=== PATIENT | male | born 1955 | race Caucasian/White ===

== ENCOUNTER → 2016-09-19 | Outpatient (CLI) | payer MEDICARE | LOC: LABPAT 06:33 | PROVIDERS: ATTEND Surgery | DX: Z01.810 Encounter for preprocedural cardiovascular examination (principal); I10 Essential (primary) hypertension | CPT/HCPCS: 93005 ==

== ENCOUNTER 2016-09-24 12:11 | Day surgery (SDC) | payer MEDICARE ==
--- NOTE | 2016-08-31 16:27 | P.GSHP ---
History of Present Illness H&P Date: 08/31/16 Chief Complaint: Hernia Patient seen in the office today with complaints of left groin swelling and swelling at the umbilicus. He has discomfort at the umbilicus at times. The swelling in the left groin has gradually increased. He was told in the past this may represent a lipoma. No nausea or vomiting. No change in bowel habits. Surgical - Exam Physical exam: General: Well-developed, well-nourished HEENT: Normocephalic, sclerae nonicteric Abdomen: Nontender, nondistended, incarcerated umbilical hernia moderate sized, skin appears slightly ischemic in nature, left groin with large lipoma, no definite hernia palpable Extremities: No edema Neuro: Alert and oriented Assessment and Plan (1) Incarcerated umbilical hernia Narrative/Plan: Will proceed with operative repair of the umbilical hernia that is incarcerated with mesh. We'll plan excision of the left groin lipoma simultaneously. If a left inguinal hernia is identified was repaired as well. Risks of bleeding, infection, recurrence, postoperative pain, swelling, seroma formation, and bowel injury were discussed. He understands and wishes to proceed. Status: Acute
[2016-09-17 09:57] VITALS: BMI 47.4
[~2016-09-24 12:11] MED LIST: DEXAMETHASONE SOD PHOSPHATE 10 MG/ML 1 ML VIAL IV ONE; HEPARIN SODIUM,PORCINE 5,000 UNIT/ML 1 ML VIAL SQ ONE; LACTATED RINGERS 1,000 ML IV SCH; LIDOCAINE 1% 20 ML VIAL (10MG/ML) FOR IV START INTRADERMA PRN; SCOPOLAMINE 1.5MG/72HR PATCH TRANSDERM ONE; ceFAZolin 3 GM in SODIUM CHLORIDE 0.9% 100 ML IVPB ONE
[2016-09-24] MEDS ORDERED: LACTATED RINGERS 1,000 ML IV ONE ×2 (12:41→15:06)
[2016-09-24] MEDS: ONDANSETRON 4 MG/2 ML VIAL IVP ONE ×2 (12:53→16:24)
[2016-09-24] MEDS ORDERED: BUPIVACAINE (PF) 0.25% 30 ML VIAL SQ ONE ×2 (14:08)
[2016-09-24] MEDS ORDERED: SUCCINYLCHOLINE CHLORIDE VIAL 200 MG/10 ML VIAL IV ONE (14:24)
[2016-09-24] MEDS ORDERED: LIDOCAINE 1% INJ 10MG/ML (20 ML MDV) ONE (14:24)
[2016-09-24] MEDS ORDERED: MIDAZOLAM 2 MG/2 ML VIAL ONE (14:24)
[2016-09-24] MEDS ORDERED: GLYCOPYRROLATE 0.2 MG/ML 2 ML VIAL ONE (14:24)
[2016-09-24] MEDS ORDERED: PROPOFOL 10 MG/ML 20 ML VIAL IV ONE (14:24)
[2016-09-24] MEDS ORDERED: ROCURONIUM BROMIDE 10 MG/ML 10 ML VIAL IV ONE (14:24)
[2016-09-24] MEDS ORDERED: KETOROLAC 30 MG/ML 1 ML VIAL ONE (14:24)
[2016-09-24] MEDS ORDERED: NEOSTIGMINE 1 MG/ML 10 ML VIAL ONE (14:24)
[2016-09-24] MEDS ORDERED: fentaNYL (PF) 50 MCG/ML 2 ML AMP ONE (14:24)
[2016-09-24 15:51] VITALS: RESP 16; TEMP 97.7
[2016-09-24] MEDS ORDERED: NALOXONE 0.4 MG/ML 1 ML VIAL IV PRN (15:56)
[2016-09-24] MEDS ORDERED: HYDROcodone/APAP 5-325MG 1 EACH TAB PO PRN (15:56)
--- NOTE | 2016-09-24 16:00 | P.PCN ---
Date of Procedure: 09/24/16 Preoperative Diagnosis: Postoperative Diagnosis: Procedure(s) Performed: PREOPERATIVE DIAGNOSIS: Incarcerated umbilical hernia, groin mass POSTOPERATIVE DIAGNOSIS: Same PROCEDURE: Repair incarcerated umbilical hernia with mesh, excision left groin mass SURGEON: Jeff EBL: Minimal ANESTHESIA: General COMPLICATIONS: None OPERATIVE PROCEDURE: The patient was placed in the operating table in the supine position. A superior periumbilical incision was made using the scalpel. The subcutaneous tissues were dissected bluntly. The hernia sac was identified. The umbilical attachments to the fascia were divided using electrocautery. The hernia sac was excised. The hernia sac was sent to pathology. A 4.3 cm ventral X mesh was placed beneath the fascia and sutured in place using trans-fascial 0 Ethibond sutures. The defect was closed using interrupted [id number] 0 Ethibond sutures. The subcutaneous tissues were reapproximated using subcutaneous 3-0 Vicryl sutures. The umbilicus was tacked back down to the fascia using a 3-0 Vicryl suture. The skin was closed using 4- 0 Monocryl sutures. Next the left groin was addressed. A oblique incision was made in the left groin. Dissection through the saphenous fat took place using electrocautery. The patient's lipomatous mass was excised bluntly. As measured approximately 6 x 5 cm in size. This did not appear to enter into the region of the spermatic cord or the fascia. This was removed essentially as one piece without difficulty. The subcutaneous tissues were then closed using 3 -0 Vicryl sutures. The skin was closed using 4-0 Monocryl sutures. Steri- Strips and sterile dressings were then applied. DISPOSITION: Stable to recovery room Implants: Indications for Procedure: Operative Findings: Description of Procedure:
[2016-09-24] MEDS: HYDROmorphone 1 MG/ML 1 ML SYRINGE IVP PRN ×3 (16:06→16:22)
[2016-09-24] MEDS ORDERED: HYDROcodone/APAP 5-325MG 1 EACH TAB PO ONE (16:52)
[2016-09-24 17:18] VITALS: PULSE 55
[2016-09-24 17:34] VITALS: BP 124/73
== END 2016-09-24 18:16 | disposition home or self-care (01) ==
LOC: OR 12:11
PROVIDERS: ATTEND Surgery
DX: K42.0 Umbilical hernia with obstruction, without gangrene (principal); D17.1 Benign lipomatous neoplasm of skin and subcutaneous tissue of trunk; I10 Essential (primary) hypertension; Z79.899 Other long term (current) drug therapy
CPT/HCPCS: 49587; 88304; 88302; C1781; J2250; J0330; J1644; J1100; J2710; J0690; J2405; J2001; J3010; J1885; J1170; J2704

== ENCOUNTER 2018-10-15 05:26 | Emergency (ER) | payer MEDICARE ==
[2018-10-15 05:34] VITALS: TEMP 97.7
--- NOTE | 2018-10-15 06:01 | ED ---
Overdose HPI - General Source: patient Mode of arrival: ambulatory Limitations: no limitations - History of Present Illness MD Complaint: accidental overdose Onset/Timin -: minutes(s) Context: Accidental Overdose: medication error Treatments Prior to Arrival: none <Chetan Taveras - Last Filed: 10/15/18 06:03> <Jai Loco - Last Filed: 10/15/18 09:00> - General Chief Complaint: Overdose Stated Complaint: Took 4 BP pills instead of 1 Time Seen by Provider: 10/15/18 05:44 - History of Present Illness Initial Comments: This patient is a 63-year-old man who states that he has taken an accidental overdose of his atenolol this morning approximately 45 minutes ago. The patient states that he was thinking about taking ibuprofen, and usually takes for tablets of that at a time, but he states that he accidentally took the wrong pills, taking 4 of his atenolol 50 mg for total of 200 mg. Patient states that he attempted to induce emesis at home but was not successful. The patient states that he has not noted any symptoms. He is not feeling lightheaded area no dyspnea, diaphoresis, or syncope. (Chetan Taveras) - Related Data Home Medications Medication Instructions Recorded Confirmed Atenolol [Tenormin] 50 mg PO BID 09/17/16 10/15/18 Ibuprofen [Motrin] 800 mg PO DAILY PRN 09/17/16 10/15/18 Allergies Allergy/AdvReac Type Severity Reaction Status Date / Time No Known Allergies Allergy Verified 10/15/18 06:49 Review of Systems ROS Other: All systems not noted in ROS Statement are negative. Constitutional: Denies: weakness Eyes: Denies: vision change Respiratory: Denies: cough, dyspnea Cardiovascular: Denies: chest pain, palpitations, syncope Gastrointestinal: Reports: nausea. Denies: abdominal pain, vomiting, diarrhea Genitourinary: Denies: dysuria Musculoskeletal: Denies: back pain Skin: Denies: rash Neurological: Denies: headache, weakness, numbness <Chetan Taveras - Last Filed: 10/15/18 06:03> ROS Other: All systems not noted in ROS Statement are negative. <Jai Loco - Last Filed: 10/15/18 09:00> ROS Statement: Those systems with pertinent positive or pertinent negative responses have been documented in the HPI. Past Medical History Past Medical History: Cancer, Hypertension, Osteoarthritis (OA) Additional Past Medical History / Comment(s): Skin cancer on face. 7 Herniated discs in back. History of Any Multi-Drug Resistant Organisms: None Reported Past Surgical History: Joint Replacement, Orthopedic Surgery Additional Past Surgical History / Comment(s): Colonoscopy, skin cancer on face removed. left knee partially replaced, Past Anesthesia/Blood Transfusion Reactions: No Reported Reaction Past Psychological History: No Psychological Hx Reported Smoking Status: Never smoker Past Alcohol Use History: Occasional Past Drug Use History: None Reported - Past Family History Father Family Medical History: Cancer Mother Family Medical History: Cancer <LucyChetan christianson - Last Filed: 10/15/18 06:03> General Exam Limitations: no limitations General appearance: alert, in no apparent distress Head exam: Present: atraumatic, normocephalic Eye exam: Present: normal appearance. Absent: scleral icterus, conjunctival injection ENT exam: Present: normal oropharynx Neck exam: Present: normal inspection, full ROM Respiratory exam: Present: normal lung sounds bilaterally. Absent: respiratory distress, wheezes, rales, rhonchi, stridor Cardiovascular Exam: Present: regular rate, normal rhythm, normal heart sounds. Absent: systolic murmur, diastolic murmur, rubs, gallop GI/Abdominal exam: Present: soft. Absent: distended, tenderness, guarding, rebound, rigid, mass Back exam: Present: normal inspection. Absent: CVA tenderness (R), CVA tend erness (L) Neurological exam: Present: alert, oriented X3, normal gait Skin exam: Present: warm, dry, intact, normal color. Absent: rash <NitinChetan - Last Filed: 10/15/18 06:03> Course Vital Signs 10/15/18 10/15/18 10/15/18 05:30 05:40 06:10 Temperature 97.7 F Pulse Rate 61 64 58 L Respiratory 18 20 18 Rate Blood Pressure 165/84 149/87 141/79 O2 Sat by Pulse 99 98 97 Oximetry 10/15/18 10/15/18 10/15/18 06:40 06:50 07:25 Temperature Pulse Rate 58 L 57 L 61 Respiratory 18 12 18 Rate Blood Pressure 134/80 140/93 121/83 O2 Sat by Pulse 97 96 97 Oximetry 08/14/19 08:46 Temperature Pulse Rate Respiratory Rate Blood Pressure 109/78 O2 Sat by Pulse Oximetry Medical Decision Making - EKG Data -: EKG Interpreted by Me EKG shows normal: sinus rhythm (With sinus arrhythmia), axis (Normal), intervals (Normal), QRS complexes (Normal), ST-T waves (Normal) Rate: bradycardia (Rate 54 bpm) <Chetan Taveras - Last Filed: 10/15/18 06:03> - Lab Data Result diagrams: 10/15/18 05:50 10/15/18 05:50 <Jai Loco - Last Filed: 10/15/18 09:00> - Medical Decision Making Patient care was sent out to me by previous shift physician Dr. Taveras. Briefly, patient is a 63-year-old male past medical history of hypertension. Patient accidentally took 450 mg tablets of atenolol. Patient is denying suicidality. Patient is currently asymptomatic at this time. Initial vital signs upon arrival were within acceptable limits. Patient's vitals were monitored over the last several hours with stable measurements. Patient was observed in emergency department for several hours. Patient and motor without complications. Patient continues to endorse no symptoms. Patient told to please be careful when taking his medications. Told to hold off on his atenolol medications today. Return parameters discussed. Patient was up with primary care physician. Patient clear for discharge. (Jai Loco) - Lab Data Lab Results 10/15/18 10/15/18 Range/Units 05:50 05:50 WBC 7.2 (3.8-10.6) k/uL RBC 4.87 (4.30-5.90) m/uL Hgb 14.2 (13.0-17.5) gm/dL Hct 43.4 (39.0-53.0) % MCV 89.1 (80.0-100.0) fL MCH 29.1 (25.0-35.0) pg MCHC 32.6 (31.0-37.0) g/dL RDW 15.5 (11.5-15.5) % Plt Count 198 (150-450) k/uL Neutrophils % 51 % Lymphocytes % 38 % Monocytes % 6 % Eosinophils % 3 % Basophils % 1 % Neutrophils # 3.6 (1.3-7.7) k/uL Lymphocytes # 2.8 (1.0-4.8) k/uL Monocytes # 0.4 (0-1.0) k/uL Eosinophils # 0.2 (0-0.7) k/uL Basophils # 0.0 (0-0.2) k/uL Sodium 140 (137-145) mmol/L Potassium 4.4 (3.5-5.1) mmol/L Chloride 106 (98-107) mmol/L Carbon Dioxide 23 (22-30) mmol/L Anion Gap 11 mmol/L BUN 16 (9-20) mg/dL Creatinine 0.66 (0.66-1.25) mg/dL Est GFR (CKD-EPI)AfAm >90 (>60 ml/min/1.73 sqM) Est GFR (CKD-EPI)NonAf >90 (>60 ml/min/1.73 sqM) Glucose 112 H (74-99) mg/dL Calcium 9.0 (8.4-10.2) mg/dL Disposition <Chetan Taveras - Last Filed: 10/15/18 06:03> Is patient prescribed a controlled substance at d/c from ED?: No Time of Disposition: 09:00 <Jai Loco - Last Filed: 10/15/18 09:00> Clinical Impression: Accidental drug ingestion Disposition: HOME SELF-CARE Condition: Good Instructions (If sedation given, give patient instructions): Atenolol (By mouth) Referrals: Pedro Luis Taveras DO [Primary Care Provider] - 1-2 days
[2018-10-15] MEDS ORDERED: SODIUM CHLORIDE 0.9% 500 ML 500 ML IV STA (06:03)
[2018-10-15 07:20] LABS: Basophils % (A) 1 %; Eosinophils # (A) 0.2 k/uL (0-0.7); Eosinophils % (A) 3 %; HCT 43.4 % (39.0-53.0); HGB 14.2 gm/dL (13.0-17.5); Lymphocytes # (A) 2.8 k/uL (1.0-4.8); Lymphocytes % (A) 38 %; MCH 29.1 pg (25.0-35.0); MCHC 32.6 g/dL (31.0-37.0); MCV 89.1 fL (80.0-100.0); Monocytes # (A) 0.4 k/uL (0-1.0); Monocytes % (A) 6 %; Neutrophils # (A) 3.6 k/uL (1.3-7.7); Neutrophils % (A) 51 %; Platelet Count 198 k/uL (150-450); RBC 4.87 m/uL (4.30-5.90); RDW 15.5 % (11.5-15.5); WBC 7.2 k/uL (3.8-10.6)
[2018-10-15 07:27] VITALS: RESP 18
[2018-10-15 07:37] LABS: African American GFR (CKD) >90 (>60 ml/min/1.73 sqM); Anion Gap 11 mmol/L; Blood Urea Nitrogen 16 mg/dL (9-20); Carbon Dioxide 23 mmol/L (22-30); Chloride 106 mmol/L (98-107); Glucose 112 mg/dL (74-99); Potassium 4.4 mmol/L (3.5-5.1); Sodium 140 mmol/L (137-145)
[2018-10-15 09:24] VITALS: BP 113/87; PULSE 57
== END 2018-10-15 09:22 | disposition home or self-care (01) ==
LOC: EC 05:26
DX: T44.7X1A Poisoning by beta-adrenoreceptor antagonists, accidental (unintentional), initial encounter (principal); I10 Essential (primary) hypertension; Z79.899 Other long term (current) drug therapy; Z85.828 Personal history of other malignant neoplasm of skin; Z96.652 Presence of left artificial knee joint
CPT/HCPCS: 36415; 80048; 85025; 99284